=== PATIENT | male | born 1945 ===

== ENCOUNTER 2018-08-12 05:26 | Inpatient (IN) ==
[2018-08-01 10:46] LABS: Basophils # 0.1 10*3/uL (0.0-0.2); Basophils % 0.8 % (0.0-0.8); Eosinophils # 0.1 10*3/uL (0.0-0.87); Hematocrit 41.1 VOL% (42.0-52.0); Hemoglobin 13.8 GM/DL (14.0-18.0); Immature Granulocytes % 0.2 %; Immature Granulocytes Absolute 0.01 #; Lymphocytes # 1.8 10*3/uL (1.4-4.0); Lymphocytes % 27.5 % (21.2-54.2); Mean Corpuscular HGB Conc 33.6 GM/DL (32-36); Mean Corpuscular Hemoglobin 31 PG (27-34); Mean Corpuscular Volume 93.4 FL (87-102); Mean Platelet Volume 9.1 FL (9.6-12.0); Monocytes # 0.7 10*3/uL (0.11-0.8); Monocytes % 10.2 % (1.7-12.7); Neutrophils # 3.9 10*3/uL (1.4-7.4); Neutrophils % 59.3 % (38.7-73.9); Platelet Count 316 T/CUMM (130-400); Red Cell Distribution Width 12.3 % (9.3-17.3); White Blood Count 6.6 T/CUMM (4-12)
[2018-08-01 10:54] LABS: INR 0.9; PT Patient Result 10.2 SECS; Partial Thromboplastin Time 37.6 SECS (0-40)
[2018-08-01 11:11] LABS: Albumin 3.7 G/DL (3.4-5.0); Bilirubin,Total 0.9 MG/DL (0.2-1.0); Calcium 9.1 MG/DL (8.5-10.1); Osmolality,Calculated 272.8 MOS/KG (273-304); Potassium 4.1 MMOL/L (3.5-5.1); Total Protein 7.7 G/DL (6.4-8.3)
[2018-08-01 11:52] LABS: Apearance,Urine CLEAR (Clear); Bilirubin,Urine Negative (Negative); Blood, Urine Negative (Negative); Glucose,Urine (UA) Negative (Negative); Ketones,Urine Negative (Negative); Mucus,Urine Occasional /LPF (Occasional); Nitrite,Urine Negative (Negative); Protein,Urine Negative; RBC,Urine 1 /HPF (0-4); Urine Color Yellow (Yellow); Urine Specific Gravity 1.016 (1.001-1.035); Urine Urobilinogen < 2.0 EU/DL (0.2-1.0); WBC,Urine <1 /HPF (0-6)
[2018-08-12] MEDS ORDERED: FAMOTIDINE 20 MG TABLET PO ONE (06:20)
[2018-08-12] MEDS ORDERED: TRANEXAMIC ACID 1,000 MG/10 ML VIAL ONE (06:24)
[2018-08-12] MEDS ORDERED: VANCOMYCIN INJ 1,000 MG in SODIUM CHLORIDE 0.9% 250 ML IV ONE (06:30)
[2018-08-12] MEDS ORDERED: ceFAZolin 1,000 MG in SYRINGE 1 EACH IV ONE (06:30)
[2018-08-12] MEDS ORDERED: ceFAZolin 1,000 MG VIAL ONE (06:31)
[2018-08-12] MEDS ORDERED: VANCOMYCIN 1,000 MG VIAL ONE (06:31)
[2018-08-12] MEDS ORDERED: FAMOTIDINE 20 MG TABLET ONE (06:32)
[2018-08-12] MEDS: LACTATED RINGERS 1,000 ML IV SCH ×5 (06:39→22:33)
[2018-08-12] MEDS ORDERED: ROPIVACAINE 0.5% 30 ML VIAL ONE (06:44)
[2018-08-12] MEDS ORDERED: LIDOCAINE 1% 5 ML VIAL ONE (06:44)
[2018-08-12] MEDS ORDERED: BUPIVACAINE 0.5% 50 ML VIAL ONE (06:45)
[2018-08-12] MEDS ORDERED: BACITRACIN OINT 0.9 GM PACK TOP ONE (07:52)
[2018-08-12] MEDS ORDERED: NITROGLYCERIN SL 0.4 MG TABLET SL PRN (08:49)
[2018-08-12] MEDS ORDERED: oxyCODONE IR 5 MG TABLET PO PRN ×2 (08:50)
[2018-08-12] MEDS ORDERED: ZALEPLON 5 MG CAPSULE PO PRN (08:50)
[2018-08-12] MEDS ORDERED: MORPHINE 4 MG/1 ML VIAL IV PRN ×2 (08:50)
[2018-08-12] MEDS ORDERED: diphenhydrAMINE CAP 25 MG CAPSULE PO PRN (08:50)
[2018-08-12] MEDS ORDERED: ONDANSETRON 4 MG/2 ML VIAL IV PRN (08:50)
[2018-08-12] MEDS ORDERED: MAGNESIUM HYDROXIDE SUSP 30 ML UDCUP PO PRN (08:50)
[2018-08-12] MEDS ORDERED: PROPOFOL 200 MG/20 ML VIAL IV ONE (08:56)
[2018-08-12] MEDS ORDERED: KETAMINE 500 MG/10 ML VIAL ONE (08:56)
[2018-08-12] MEDS ORDERED: BUPIVACAINE SPINAL 0.75% 2 ML AMP SPINAL ONE (08:56)
[2018-08-12] MEDS ORDERED: PHENYLEPHRINE 1 MG/10 ML SYRINGE IV ONE (08:57)
[2018-08-12] MEDS ORDERED: LACTATED RINGERS 1,000 ML IV ONE (08:57)
[2018-08-12] MEDS ORDERED: fentaNYL 100 MCG/2 ML VIAL ONE (08:57)
[2018-08-12] MEDS ORDERED: SODIUM CHLORIDE 0.9% 100 ML IV ONE (08:57)
[2018-08-12] MEDS ORDERED: PHENYLEPHRINE 10 MG/1 ML VIAL IV ONE (08:57)
[2018-08-12] MEDS ORDERED: MIDAZOLAM 2 MG/2 ML VIAL ONE (08:57)
[2018-08-12] MEDS: KETOROLAC 15 MG/1 ML VIAL IV SCH ×3 (11:06→20:16)
[2018-08-12] MEDS: CLOPIDOGREL 75 MG TABLET PO SCH (11:07)
[2018-08-12] MEDS: ASPIRIN CHEW 81 MG TABLET PO SCH (11:07)
[2018-08-12] MEDS: DOCUSATE SODIUM 100 MG CAPSULE PO SCH ×2 (11:07→20:16)
[2018-08-12] MEDS: MULTIVITAMIN (CENTRUM) TABLET PO SCH (11:07)
[2018-08-12] MEDS: ACETAMINOPHEN 500 MG TABLET PO SCH ×2 (13:51→20:16)
[2018-08-12] MEDS: ceFAZolin 2,000 MG in PREMIX 1 EACH IV SCH ×2 (13:52→20:17)
[2018-08-12] MEDS ORDERED: PROMETHAZINE 25 MG/1 ML VIAL IM PRN (14:46)
[2018-08-12] MEDS: ATORVASTATIN 10 MG TABLET PO SCH (20:16)
[2018-08-13] MEDS: ACETAMINOPHEN 500 MG TABLET PO SCH ×2 (00:52→05:58)
[2018-08-13] MEDS: KETOROLAC 15 MG/1 ML VIAL IV SCH (03:53)
[2018-08-13 05:18] LABS: Basophils % 0.4 % (0.0-0.8); Eosinophils # 0.1 10*3/uL (0.0-0.87); Eosinophils % 0.7 % (0.00-10.9); Hematocrit 36.4 VOL% (42.0-52.0); Immature Granulocytes % 0.3 %; Immature Granulocytes Absolute 0.02 #; Lymphocytes # 1.2 10*3/uL (1.4-4.0); Lymphocytes % 15.7 % (21.2-54.2); Mean Corpuscular Hemoglobin 31 PG (27-34); Mean Corpuscular Volume 93.6 FL (87-102); Mean Platelet Volume 9.4 FL (9.6-12.0); Monocytes # 1.1 10*3/uL (0.11-0.8); Monocytes % 13.9 % (1.7-12.7); Neutrophils # 5.2 10*3/uL (1.4-7.4); Platelet Count 245 T/CUMM (130-400); Red Blood Count 3.89 MC/CUMM (3.8-5.5); Red Cell Distribution Width 12.4 % (9.3-17.3); White Blood Count 7.5 T/CUMM (4-12)
[2018-08-13 05:33] LABS: Calcium 8.5 MG/DL (8.5-10.1); Osmolality,Calculated 279.4 MOS/KG (273-304); Potassium 4.2 MMOL/L (3.5-5.1)
[2018-08-13] MEDS: LACTATED RINGERS 1,000 ML IV SCH ×2 (05:48→06:02)
[2018-08-13] MEDS: CLOPIDOGREL 75 MG TABLET PO SCH (08:41)
[2018-08-13] MEDS: LOSARTAN 50 MG TABLET PO SCH (08:41)
[2018-08-13] MEDS: amLODIPine 5 MG TABLET PO SCH (08:42)
[2018-08-13] MEDS: MULTIVITAMIN (CENTRUM) TABLET PO SCH (08:42)
[2018-08-13] MEDS: ASPIRIN CHEW 81 MG TABLET PO SCH (08:42)
[2018-08-13] MEDS: DOCUSATE SODIUM 100 MG CAPSULE PO SCH ×2 (08:42→21:27)
[2018-08-13] MEDS: ATORVASTATIN 10 MG TABLET PO SCH (21:27)
[2018-08-14 06:29] LABS: Basophils % 0.4 % (0.0-0.8); Eosinophils # 0.1 10*3/uL (0.0-0.87); Eosinophils % 0.5 % (0.00-10.9); Hematocrit 34.8 VOL% (42.0-52.0); Hemoglobin 11.5 GM/DL (14.0-18.0); Immature Granulocytes % 0.4 %; Immature Granulocytes Absolute 0.04 #; Lymphocytes # 1.8 10*3/uL (1.4-4.0); Lymphocytes % 16.5 % (21.2-54.2); Mean Corpuscular Hemoglobin 31 PG (27-34); Mean Corpuscular Volume 94.1 FL (87-102); Mean Platelet Volume 9.6 FL (9.6-12.0); Monocytes # 1.6 10*3/uL (0.11-0.8); Monocytes % 14.4 % (1.7-12.7); Neutrophils # 7.5 10*3/uL (1.4-7.4); Neutrophils % 67.8 % (38.7-73.9); Platelet Count 230 T/CUMM (130-400); Red Cell Distribution Width 12.5 % (9.3-17.3); White Blood Count 11.1 T/CUMM (4-12)
[2018-08-14] MEDS: amLODIPine 5 MG TABLET PO SCH (08:29)
[2018-08-14] MEDS: LOSARTAN 50 MG TABLET PO SCH (08:29)
[2018-08-14] MEDS: MULTIVITAMIN (CENTRUM) TABLET PO SCH (08:29)
[2018-08-14] MEDS: DOCUSATE SODIUM 100 MG CAPSULE PO SCH (08:29)
[2018-08-14] MEDS: ASPIRIN CHEW 81 MG TABLET PO SCH (08:29)
[2018-08-14] MEDS: CLOPIDOGREL 75 MG TABLET PO SCH (08:31)
[2018-08-14 11:53] VITALS: BP 144/67
== END 2018-08-14 13:30 | disposition home health service (06) | DRG 470 ==
LOC: N.OR 05:26 → N.SDSINP 05:29 → N.3E 08:54
PROVIDERS: ADMIT Orthopaedic Surgery; ATTEND Orthopaedic Surgery